=== PATIENT | male | born 1965 | race Caucasian/White ===

== ENCOUNTER → 2019-04-14 | Outpatient (CLI) | payer OTHER ==
[~2019-04-14] MED LIST: REGADENOSON 0.4 MG/5 ML SYRINGE IV ONE
--- NOTE | 2019-04-14 13:35 | EST ---
EXERCISE STRESS DATE OF SERVICE: 04/14/2019 AGE: 54 SEX: Male HT: 73" WT: 195 pounds PROTOCOL: Lexiscan Cardiolite STAGE: DURATION OF EXERCISE: HEART RATE REST: 90 BLOOD PRESSURE REST: 154/79 MAXIMUM HEART RATE ACHIEVED: 106 MAXIMUM BLOOD PRESSURE: 154/79 85% MPHR: 100% MPHR: METS: INDICATIONS: Abnormal EKG, preop. CLINICAL INFORMATION: Baseline rhythm sinus mechanism, rate of 90, normal axis, intervals, minor nonspecific ST-T wave changes cannot exclude anteroseptal myocardial infarction. Baseline blood pressure 154/79 mmHg. Patient received injection of Lexiscan. Electrocardiograph monitoring revealed no evidence of diagnostic ischemic ST deviation. CONCLUSION: 1. Nondiagnostic electrocardiograph stress testing. 2. Nuclear images will be reported separately. MMODL / IJN: [id number] /
--- NOTE | 2019-04-14 14:42 | NM ---
EXAMINATION TYPE: NM stress lexiscan cardiolite DATE OF EXAM: 04/14/2019 COMPARISON: 10/29/2013 HISTORY: 54-year-old male abnormal EKG, preoperative evaluation. TECHNIQUE: After the intravenous administration of 10.34 mCi Tc 99m Sestamibi - Cardiolite resting S PECT images acquired 45 minutes post injection. The patient received 0.4mg Lexiscan, 25.8 mCi Tc 99m Sestamibi - Stress images obtained [address] injection FINDINGS: Review of stress and rest SPECT images demonstrates no distinct perfusion abnormality. Gated analysi s shows normal wall motion with an estimated left ventricular ejection fraction of 66 %.TID is calcul ated at 0.98, within normal limits. IMPRESSION: No scintigraphic evidence for reversible ischemia.
== END | disposition home or self-care (01) ==
LOC: RADNMMAIN 07:46
PROVIDERS: ATTEND Physician Assistant
DX: R94.31 Abnormal electrocardiogram [ECG] [EKG] (principal)
CPT/HCPCS: 93017; 78452; A9500; J2785

== ENCOUNTER → 2019-04-23 | Outpatient (CLI) | payer OTHER | END | disposition home or self-care (01) | LOC: LABWHC1 09:02 | PROVIDERS: ATTEND Family Medicine | DX: Z01.812 Encounter for preprocedural laboratory examination (principal) | CPT/HCPCS: 87070 ==

== ENCOUNTER → 2022-12-29 | Outpatient (CLI) | payer OTHER ==
--- NOTE | 2022-12-29 15:32 | CT ---
EXAMINATION TYPE: CT abdomen pelvis wo con DATE OF EXAM: 12/29/2022 COMPARISON: None HISTORY: left flank pain, hematuria CT DLP: 486 mGycm Examination of the solid and hollow viscera is limited given the lack of contrast. FINDINGS: LUNG BASES: No evidence for nodule. No evidence for infiltrate. LIVER/GB: The gallbladder is unremarkable. No space-occupying hepatic lesion. PANCREAS: No pancreatic mass identified. No inflammatory process seen. SPLEEN: No evidence for splenomegaly. No intrasplenic lesions seen. ADRENALS: No adrenal nodules identified. No evidence for thickening. KIDNEYS: 5 mm left UVJ calculus resulting in mild left-sided hydronephrosis. Maximum rate for nonobst ructing calculi right kidney measuring up to 4 mm. 2 mm nonobstructing calculus upper pole as well as midpole left kidney. BOWEL: Appendix has a normal appearance. No evidence of bowel obstruction. No inflammatory process. Lymph nodes: No evidence for adenopathy greater than 1 cm. Abdominal aorta: Atheromatous changes seen. No evidence for aneurysm. Genital organs: No significant abnormality. Other: No significant abnormality. IMPRESSION: 1. Left-sided hydronephrosis mild in degree secondary to a 5 mm left UVJ calculus.
== END | disposition home or self-care (01) ==
LOC: RADCTMAIN 15:00
PROVIDERS: ATTEND Family Medicine
DX: N13.2 Hydronephrosis with renal and ureteral calculous obstruction (principal); K59.00 Constipation, unspecified; R10.13 Epigastric pain; R11.2 Nausea with vomiting, unspecified; R31.9 Hematuria, unspecified
CPT/HCPCS: 74176

== ENCOUNTER 2023-01-02 14:33 | Day surgery (SDC) | payer OTHER ==
[2023-01-02 15:09] VITALS: RESP 16
--- NOTE | 2023-01-02 15:10 | XR ---
EXAMINATION TYPE: XR KUB DATE OF EXAM: 01/02/2023 Comparison: None Clinical History: 57 year-old male left kidney stone, preop exam Findings: Gassy bowel loops are present throughout. Bowel content partially obscures the renal shadows. No defi nite suspicious calcification identified. Impression: Bowel content largely obscures the renal shadows.
[2023-01-02] MEDS ORDERED: LACTATED RINGERS 1,000 ML IV ONE (15:14)
[2023-01-02] MEDS ORDERED: ONDANSETRON 4 MG/2 ML VIAL ONE (15:16)
[2023-01-02 15:44] LABS: Basophils # (A) 0.1 k/uL (0-0.2); Basophils % (A) 1 %; Eosinophils # (A) 0.2 k/uL (0-0.7); Eosinophils % (A) 3 %; HCT 53.2 % (39.0-53.0); HGB 17.8 gm/dL (13.0-17.5); Lymphocytes # (A) 2.4 k/uL (1.0-4.8); Lymphocytes % (A) 31 %; MCH 30.3 pg (25.0-35.0); MCHC 33.5 g/dL (31.0-37.0); MCV 90.4 fL (80.0-100.0); Mean Platelet Volume 6.9; Monocytes # (A) 0.4 k/uL (0-1.0); Monocytes % (A) 5 %; Neutrophils # (A) 4.5 k/uL (1.3-7.7); Neutrophils % (A) 59 %; Platelet Count 270 k/uL (150-450); RBC 5.88 m/uL (4.30-5.90); RDW 12.7 % (11.5-15.5); WBC 7.7 k/uL (3.8-10.6)
[2023-01-02 16:16] LABS: African American GFR (CKD) >90 (>60 ml/min/1.73 sqM); Anion Gap 9 mmol/L; Blood Urea Nitrogen 18 mg/dL (9-20); Calcium 9.3 mg/dL (8.4-10.2); Carbon Dioxide 30 mmol/L (22-30); Chloride 100 mmol/L (98-107); Glucose 91 mg/dL (74-99); Non-African American GFR(CKD) >90 (>60 ml/min/1.73 sqM); Potassium 4.1 mmol/L (3.5-5.1); Sodium 139 mmol/L (137-145)
--- NOTE | 2023-01-02 16:16 | P.HPIHPCON ---
History of Present Illness H&P Date: 01/02/23 Chief Complaint: Left ureteral stone This is a 57-year-old male with history of twi 5 mm left-sided distal stones, he is symptomatic from his stone. Option of left-sided ureteroscopy with holmium laser was discussed. Discussed risk of bleeding infection and injury to the u reter. Risk of anesthesia was also discussed. He understood all the risk and agreed to proceed Consent for Procedure: I have explained the operation/procedure to the patient, including the risks, benefits, side effects, alternative therapies (including not receiving the p roposed treatment or service), the likelihood of the patient achieving his/her goals, and potential recuperation problems for the procedure/sedation/analgesia, as well as any blood products, if indicated. I also explained to the patient the risks, benefits and side effects of the alternatives, as well as the risks related to not receiving the proposed procedure, care, treatment, or services. Past Medical History Additional Past Medical History / Comment(s): INSOMNIA History of Any Multi-Drug Resistant Organisms: None Reported Past Surgical History: Back Surgery Additional Past Surgical History / Comment(s): BACK FUSION 2019 Past Anesthesia/Blood Transfusion Reactions: No Reported Reaction Past Psychological History: Anxiety Smoking Status: Current every day smoker Past Alcohol Use History: None Reported Additional Past Alcohol Use History / Comment(s): PT STATES HE SMOKES 1 PACK A DAY Past Drug Use History: None Reported - Past Family History Father Family Medical History: Cancer Additional Family Medical History / Comment(s): THYROID CANCER Medications and Allergies Home Medications Medication Instructions Recorded Confirmed Type QUEtiapine [SEROquel] 50 mg PO HS 01/02/23 01/02/23 History Sertraline [Zoloft] 50 mg PO DAILY 01/02/23 01/02/23 History Allergies Allergy/AdvReac Type Severity Reaction Status Date / Time No Known Allergies Allergy Verified 01/02/23 15:01 Surgical - Exam Vital Signs Temp Pulse Resp BP Pulse Ox 96.7 F L 77 16 145/92 99 01/02/23 15:08 01/02/23 15:08 01/02/23 15:08 01/02/23 15:08 01/02/23 15:08 - General no distress, moderate pain - Eyes normal ocular movement, no pale - ENT normal nares, normal mucosa - Respiratory normal expansion, normal respiratory effort - Abdomen Abdomen: soft, non tender - Psychiatric oriented to time, oriented to person, oriented to place Results - Labs 01/02/23 15:13 Abnormal Lab Results - Last 24 Hours (Table) 01/02/23 Range/Units 15:13 Hgb 17.8 H (13.0-17.5) gm/dL Hct 53.2 H (39.0-53.0) % Assessment and Plan Assessment: OR for left-sided ureteroscopy, holmium laser lithotripsy, stone basketing and stent insertion
[2023-01-02] MEDS ORDERED: SUCCINYLCHOLINE CHLORIDE 200 MG/10 ML VIAL IV ONE (17:19)
[2023-01-02] MEDS ORDERED: LIDOCAINE 2% INJ 20 MG/ML (2 ML VIAL) ONE (17:19)
[2023-01-02] MEDS ORDERED: MIDAZOLAM 2 MG/2 ML VIAL ONE (17:19)
[2023-01-02] MEDS ORDERED: ePHEDrine 50 MG/ML 1 ML VIAL ONE (17:19)
[2023-01-02] MEDS ORDERED: fentaNYL (PF) 50 MCG/ML 2 ML AMP ONE (17:19)
[2023-01-02] MEDS ORDERED: PROPOFOL 10 MG/ML 20 ML VIAL IV ONE (17:19)
[2023-01-02] MEDS ORDERED: ceFAZolin 1,000 MG VIAL ONE (17:39)
[2023-01-02] MEDS ORDERED: SODIUM CHLORIDE 0.9% 100 ML BAG ONE (17:39)
--- NOTE | 2023-01-02 18:08 | P.OP ---
Date of Procedure: 01/02/23 Preoperative Diagnosis: Left ureteral stone Postoperative Diagnosis: Same Procedure(s) Performed: Cystoscopy, left ureteroscopy, stone basketing Implants: None Anesthesia: GARIMAA Surgeon: Weston Davies Estimated Blood Loss (ml): 5 Pathology: other (Left ureteral stone) Condition: stable Disposition: PACU Indications for Procedure: This is a 57-year-old male with history of twi 5 mm left-sided distal stones, he is symptomatic from his stone. Option of left-sided ureteroscopy with holmium laser was discussed. Discussed risk of bleeding infection and injury to the ureter. Risk of anesthesia was also discussed. He understood all the risk and agreed to proceed Operative Findings: one of the ureteral stones waswithin the bladder, the other stone was knocked into the bladder upon's wire insertion Description of Procedure: Patient brought to the operating room, general anesthesia was induced. He was prepped and draped in sterile fashion and placed in dorsal lithotomy position. Cystoscopy fitted 21-Kinyarwanda sheath was inserted per urethra, cystoscopy was performed which showed no abnormality within the bladder, patient did have enlarged prostate with intravesical extension. At this time a stone was visualized within the bladder this was irrigated out, and an additional stone was seen protruding from the UVJ, this time a wire was advanced through the scope and up the left ureter, upon wire insertion stone was knocked down into the bladder. At this time the stone basket was used to grasp the stone. The Semirigid ureteroscope was inserted per urethra and advanced all the way up to the UPJ which showed no stones along the course a ureter, the ureter was dilated consistent with a recently passed stone. Pullback ureteroscopy was performed showed no injury to the ureter or any ureteral stones. The bladder was emptied at the end of the case, the stones were sent for analysis. Patient tolerated the procedure was taken to recovery in stable condition
[2023-01-02 18:14] VITALS: TEMP 97.6
--- NOTE | 2023-01-02 18:34 | FL ---
Intraoperative/procedural fluoroscopic services were provided. Total fluoroscopy time is 1 minute 9 s econds with a total of 6 submitted images to PACS. Please see the operative/procedural note for furth er details. DAP: [id number] mGym2
[2023-01-02 19:20] VITALS: BP 139/81; PULSE 74
== END 2023-01-02 19:21 | disposition home or self-care (01) ==
LOC: OR 14:33
PROVIDERS: ATTEND Urology
DX: N20.1 Calculus of ureter (principal); F41.9 Anxiety disorder, unspecified; F32.A Depression, unspecified; K21.9 Gastro-esophageal reflux disease without esophagitis; F17.210 Nicotine dependence, cigarettes, uncomplicated; Z80.8 Family history of malignant neoplasm of other organs or systems; Z79.899 Other long term (current) drug therapy
CPT/HCPCS: 52352; 80048; 85025; 82365; 74018; C1769; J2250; J0330; J0690 ×2; J3010; J2704; J2001

== ENCOUNTER 2023-01-11 12:24 | Day surgery (SDC) | payer OTHER ==
[2023-01-11 15:15] VITALS: RESP 18
--- NOTE | 2023-01-11 15:17 | US ---
ULTRASOUND GUIDED FNA THYROID BIOPSY: CLINICAL HISTORY: Right thyroid nodule FINDINGS: The procedure was explained to the patient. The risks, complications, benefits and alternatives were discussed and any questions were answered. Informed consent was obtained. Patient was placed supin e on the ultrasound table and prepped and draped in the usual sterile fashion. Utilizing a 25 gauge needle, five passes were made into the requested right thyroid nodule. Patient was stable throughout the procedure. Pathology is pending. All elements of maximal barrier technique were utilized. IMPRESSION: 1. Successful ultrasound guided FNA thyroid biopsy. Note is made that nodule is heavily calcified wh ich could lower the diagnostic yield. Correlate clinically.
[2023-01-11 15:18] VITALS: BP 131/75; PULSE 84
== END 2023-01-11 15:05 | disposition home or self-care (01) ==
LOC: RADPROMAIN 12:24
PROVIDERS: ATTEND Surgery
DX: E04.1 Nontoxic single thyroid nodule (principal)
CPT/HCPCS: 10005; 88173; 88305